=== PATIENT | male | born 1945 | race Caucasian/White ===

== ENCOUNTER 2017-04-30 12:19 | Inpatient (IN) | payer OTHER, MEDICARE ==
[~2017-04-30] VITALS: Ht 185.4 cm; Wt 81.5 kg
[2017-04-30] VITALS (7 sets, daily range): BP systolic 120–155; BP diastolic 58–73; PULSE 56–72; RESP 16–20; TEMP 97.8–98.7; O2SAT 95–99
[~2017-04-30 12:19] MED LIST: MMW SSP; PENI500T PO
[2017-04-30] MEDS ORDERED: SODIUM CHLORIDE 0.9% FLUSH 10 ML FLUSH IVF PRN (13:30)
--- NOTE | 2017-04-30 13:30 | PD ---
HPI Chief Complaint: Neuro Symptoms/ Deficits Time Seen by Provider: 13:13 Travel History International Travel<30 days: No Contact w/Intl Traveler<30days: No Traveled to known affect area: No History of Present Illness HPI This is a 71-year-old male who presents via EMS for evaluation of left vision loss. Symptoms started yesterday at noon. He reports that he was walking inside of his house from outside and initially thought that he was just adjusting to the light change however he had persistent vision loss in the left eye. Specifically he describes it as a tunnel vision in which she can essentially see fairly well however and all the peripheral regions of his left eye vision he sees nothing but tiwari. He saw an tax services specialist at [address] [facility] in [place], Dr. Berger, yesterday who told him that he likely had a cva and recommended routine follow-up and recommended coming to the emergency room if any symptoms worsen. He reports that today he developed some tingling sensation in the left parietal scalp region as well as the left leg and this prompted evaluation. He denies any pain. He denies any slurred speech, facial droop, weakness in the extremities, chest pain or shortness of breath, abdominal pain, recent illness. He denies any significant past medical history. He denies any tobacco use. He denies any drug use. He has no other complaints. His primary care physician is Dr. Winters. [facility] Past Medical History Blood Disorders: No Anxiety: Yes Depression: Yes Cancer: No Cardiovascular Problems: No Diminished Hearing: No Endocrine: No Genitourinary: No Immune Disorder: No Musculoskeletal: No Neurologic: No Psychiatric: Yes Reproductive: No Respiratory: No Past Surgical History Oral Surgery: Yes (had upper teeth removed.) Other Surgery: Yes (just dental.) Social History Alcohol Use: No (RECOVERING) Tobacco Use: No Substance Use: Yes (RECOVERING) Allergies-Medications (Allergen,Severity, Reaction): Coded Allergies: No Known Allergies (Verified , 04/30/17) Reported Meds & Prescriptions Reported Meds & Active Scripts Active No Active Prescriptions or Reported Medications Review of Systems Except as stated in HPI: all other systems reviewed are Neg Physical Exam Narrative GENERAL: Well-developed well-nourished male in no acute distress SKIN: Warm and dry. HEAD: Atraumatic. Normocephalic. EYES: Pupils equal and round reactive to light. No scleral icterus. No injection or drainage. ENT: No nasal bleeding or discharge. Mucous membranes pink and moist. NECK: Trachea midline. No JVD. CARDIOVASCULAR: Regular rate and rhythm. No murmur appreciated. RESPIRATORY: No accessory muscle use. Clear to auscultation. Breath sounds equal bilaterally. GASTROINTESTINAL: Abdomen soft, non-tender, nondistended. Hepatic and splenic margins not palpable. MUSCULOSKELETAL: No obvious deformities. No clubbing. No cyanosis. No edema. NEUROLOGICAL: Awake and alert. No obvious cranial nerve deficits. Motor grossly within normal limits. Normal speech. No extremity drift. Normal heel to koch. The patient has left eye peripheral visual loss in all 4 quadrants. Centrally he is able to visualize objects. PSYCHIATRIC: Appropriate mood and affect; insight and judgment normal. Data Data Last Documented VS Vital Signs Date Time Temp Pulse Resp B/P Pulse Ox O2 Delivery O2 Flow Rate FiO2 04/30/17 15:15 97.9 56 16 120/64 98 Room Air Orders Electrocardiogram (04/30/17 13:20) Prothrombin Time / Inr (Pt) (04/30/17 13:20) Act Partial Throm Time (Ptt) (04/30/17 13:20) Complete Blood Count With Diff (04/30/17 13:20) Comprehensive Metabolic Panel (04/30/17 13:20) Ecg Monitoring (04/30/17 13:20) Iv Access Insert/Monitor (04/30/17 13:20) Oximetry (04/30/17 13:20) Sodium Chloride 0.9% Flush (Ns Flush) (04/30/17 13:30) Mri Brain W/O Contrast (04/30/17 ) Labs Laboratory Tests Test 04/30/17 13:45 White Blood Count 5.9 TH/MM3 Red Blood Count 4.50 MIL/MM3 Hemoglobin 13.2 GM/DL Hematocrit 39.5 % Mean Corpuscular Volume 87.7 FL Mean Corpuscular Hemoglobin 29.2 PG Mean Corpuscular Hemoglobin 33.3 % Concent Red Cell Distribution Width 13.7 % Platelet Count 201 TH/MM3 Mean Platelet Volume 7.3 FL Neutrophils (%) (Auto) 63.6 % Lymphocytes (%) (Auto) 23.6 % Monocytes (%) (Auto) 9.6 % Eosinophils (%) (Auto) 2.3 % Basophils (%) (Auto) 0.9 % Neutrophils # (Auto) 3.8 TH/MM3 Lymphocytes # (Auto) 1.4 TH/MM3 Monocytes # (Auto) 0.6 TH/MM3 Eosinophils # (Auto) 0.1 TH/MM3 Basophils # (Auto) 0.1 TH/MM3 CBC Comment DIFF FINAL Differential Comment Prothrombin Time 10.5 SEC Prothromb Time International 1.0 RATIO Ratio Activated Partial 27.5 SEC Thromboplast Time Sodium Level 140 MEQ/L Potassium Level 4.3 MEQ/L Chloride Level 106 MEQ/L Carbon Dioxide Level 30.3 MEQ/L Anion Gap 4 MEQ/L Blood Urea Nitrogen 17 MG/DL Creatinine 1.03 MG/DL Estimat Glomerular Filtration 72 ML/MIN Rate Random Glucose 88 MG/DL Calcium Level 8.6 MG/DL Total Bilirubin 0.4 MG/DL Aspartate Amino Transf 22 U/L (AST/SGOT) Alanine Aminotransferase 24 U/L (ALT/SGPT) Alkaline Phosphatase 88 U/L Total Protein 6.2 GM/DL Albumin 3.4 GM/DL [facility] Medical Decision Making Medical Screen Exam Complete: Yes Emergency Medical Condition: Yes Medical Record Reviewed: Yes Differential Diagnosis CVA, central retinal artery occlusion, central retinal vein occlusion, retinal detachment, mass Narrative Course 71-year-old male presents with left eye peripheral vision loss which started yesterday. Today he developed some paresthesias in the left parietal scalp and left leg. He was seen by an tax services specialist yesterday and told that he likely had a stroke. Plan today is for basic lab work, EKG, and ECG monitoring, MRI of the brain. I discussed with my attending agrees with plan of care. The MRI of the brain is negative. At this point in time the plan would be to admit the patient for further neurologic/ophthalmologic workup. I discussed with Dr. Loya who is agreeable. Diagnosis Primary Impression: Acute visual loss Qualified Code: H53.132 - Acute visual loss, left Admitting Information Admitting Physician Requests: Admit Scripts No Active Prescriptions or Reported Meds Jaylan Montana Apr 30, 2017 13:30
[2017-04-30 14:05] LABS: AUTOMATED NEUTROPHIL # 3.8 TH/MM3 (1.8-7.7); BASOPHIL # 0.1 TH/MM3 (0-0.2); BASOPHIL % 0.9 % (0.0-2.0); EOSINOPHIL # 0.1 TH/MM3 (0-0.4); EOSINOPHIL % 2.3 % (0.0-4.0); HEMATOCRIT 39.5 % (39.0-51.0); HEMO FLAGS DIFF FINAL; LYMPH % 23.6 % (9.0-44.0); LYMPHOCYTE # 1.4 TH/MM3 (1.0-4.8); MEAN CELL VOLUME 87.7 FL (80.0-100.0); MEAN CORPUSCULAR HEMOGLOBIN 29.2 PG (27.0-34.0); MEAN CORPUSCULAR HGB CONC 33.3 % (32.0-36.0); MONO % 9.6 % (0.0-8.0); NEUT % 63.6 % (16.0-70.0); PLATELET COUNT 201 TH/MM3 (150-450); RED CELL DISTRIBUTION WIDTH 13.7 % (11.6-17.2); WHITE BLOOD COUNT 5.9 TH/MM3 (4.0-11.0)
[2017-04-30 14:15] LABS: APTT (PATIENT) 27.5 SEC (24.3-30.1); PROTHROMBIN TIME - PATIENT 10.5 SEC (9.8-11.6)
[2017-04-30 14:19] LABS: ANION GAP 4 MEQ/L (5-15); AST (GOT) 22 U/L (15-37); BICARBONATE 30.3 MEQ/L (21.0-32.0); BLOOD UREA NITROGEN 17 MG/DL (7-18); CHLORIDE 106 MEQ/L (98-107); GLOMERULAR FILTRATION RATE 72 ML/MIN (>89); POTASSIUM 4.3 MEQ/L (3.5-5.1); SODIUM (NA) 140 MEQ/L (136-145)
[2017-04-30 14:20] LABS: ALT (GPT) 24 U/L (12-78)
[2017-04-30 14:22] LABS: ALKALINE PHOSPHATASE 88 U/L (45-117); TOTAL BILIRUBIN ADULT 0.4 MG/DL (0.2-1.0)
--- NOTE | 2017-04-30 15:29 | RADRPT ---
EXAM DATE/TIME: 04/30/2017 14:54 [facility] COMPARISON: No previous studies available for comparison. INDICATIONS : Lost vision in left eye with left sided tingling. MEDICAL HISTORY : None. SURGICAL HISTORY : dental implants ENCOUNTER: Subsequent ACUITY: 2 day PAIN SCORE: 0/10 LOCATION: cranial TECHNIQUE: Multiplanar, multisequence MRI of the brain was performed without contrast. FINDINGS: There is no restricted diffusion evident to suggest an acute ischemic process. Moderate periventricular white matter changes are noted worse in the basalganglia on the left. There are no extra-axial fluid collections appreciated. There is no parenchymal hemorrhage In the posterior fossa there is the prominent cisterna magna evident. The orbits and paranasal sinuses are unremarkable. CONCLUSION: 1. Negative MRI of the brain for acute process. 2. Hyper acute subarachnoid hemorrhage can be missed by MRI. Silvestre Garcia MD FACR on April 30, 2017 at 15:25 Board Certified Radiologist. This report was verified electronically.
[2017-04-30] MEDS ORDERED: DEXTROSE 50% IN WATER 50 ML VIAL(D50) IV PUSH PRN (17:45)
[2017-04-30] MEDS ORDERED: GLUCAGON 1 MG/ML VIAL OTHER PRN (17:45)
[2017-04-30] MEDS ORDERED: SODIUM CHLORIDE 0.9% FLUSH 5 ML FLUSH IV FLUSH PRN (17:45)
--- NOTE | 2017-04-30 18:42 | RADRPT ---
EXAM DATE/TIME: 04/30/2017 18:02 [facility] COMPARISON: MRI BRAIN W/O CONTRAST, April 30, 2017, 14:54. INDICATIONS : Acute vision loss. RADIATION DOSE: 40.63 CTDIvol (mGy) MEDICAL HISTORY : None SURGICAL HISTORY : None. ENCOUNTER: Initial ACUITY: 1 day PAIN SCALE: 0/10 LOCATION: cranial TECHNIQUE: Multiple contiguous axial images were obtained of the head. Using automated exposure control and adjustment of the mA and/or kV according to patient size, radiation dose was kept as low as reasonably achievable to obtain optimal diagnostic quality images. DICOM format image data is av ailable electronically for review and comparison. FINDINGS: CEREBRUM: The ventricles are normal for age. No evidence of midline shift, mass lesion, hemorrha ge or acute infarction. No extra-axial fluid collections are seen. Minimal density in the right midd le cranial fossa extra-axial space likely dural thickening versus less likely hemorrhage. POSTERIOR FOSSA: The cerebellum and brainstem are intact. The 4th ventricle is midline. The cer ebellopontine angle is unremarkable. EXTRACRANIAL: The visualized portion of the orbits is intact. SKULL: The calvaria is intact. No evidence of skull fracture. CONCLUSION: Minimal density in the right middle cranial fossa extra-axial space likely dural thickening versus le ss likely hemorrhage. Otherwise unremarkable CT brain. Mejia Cantu MD on April 30, 2017 at 18:38 Board Certified Radiologist. This report was verified electronically.
--- NOTE | 2017-04-30 19:11 | RADRPT ---
EXAM DATE/TIME: 04/30/2017 18:24 [facility] COMPARISON: No previous studies available for comparison. INDICATIONS : Cerebrovascular accident. MEDICAL HISTORY : Depression. Anxiety. Cerebrovascular accident. SURGICAL HISTORY : Dental implants. ENCOUNTER: Initial ACUITY: 2 days PAIN SCORE: 3/10 LOCATION: Bilateral neck PEAK SYSTOLIC VELOCITIES (cm/sec): ICA/CCA RATIO: Right: 0.9 Left: 1.0 ICA: Right: 81.3 Left: 88.4 CCA: Right: 88.4 Left: 88.3 ECA: Right: 98.3 Left: 111.6 VERTEBRAL: Right: 53.2 antegrade Left: 49.0 antegrade Elevated flow velocities and ICA/CCA ratios have been found to correlate with increased degrees of vessel stenosis, calculated as percentage of diameter relative to a normal segment of distal ICA/CCA FINDINGS: RIGHT CAROTID: No significant stenosis is visualized. Mild plaque. The waveforms are within normal limits. LEFT CAROTID: No significant stenosis is visualized. Mild plaque. The waveforms are within normal limits. VERTEBRAL ARTERIES: Antegrade flow is seen in both vertebral arteries. MISCELLANEOUS: None. CONCLUSION: No hemodynamically significant stenosis in either carotid artery. Mejia Cantu MD on April 30, 2017 at 19:03 Board Certified Radiologist. This report was verified electronically.
[2017-04-30] MEDS ORDERED: ASPIRIN 325 MG TAB PO ONE (20:00)
--- NOTE | 2017-04-30 20:16 | RADRPT ---
EXAM DATE/TIME: 04/30/2017 19:43 [facility] COMPARISON: No previous studies available for comparison. INDICATIONS : CVA. Lost vision in left eye with left sided tingling. MEDICAL HISTORY : None. SURGICAL HISTORY : None. ENCOUNTER: Subsequent ACUITY: 2 day PAIN SCORE: 0/10 LOCATION: head. Known MRI Precautions: Sedation utilized? No Anesthesia present? No MRI reaction? No If YES, explain: Please note a normal MRA of the brain does not entirely exclude the possibility of a small aneurysm, nor the possibility of distal intracranial vessel disease. TECHNIQUE: 3D time of flight MRA was performed. Source images, multiplanar STS MIP, and 3D volume MIP reconstru ctions were reviewed. FINDINGS: There is excellent visualization of the major intracranial arteries out to the second-order branch ve ssels. There is no evidence for aneurysm, vessel truncation or stenosis, and no evidence for vascula r malformation. Hypoplastic anterior and posterior to meeting arteries. Questionable narrowing versus thrombus of the distal left for artery which could be artifact. The anterior, posterior and middle c erebral arteries are patent. CONCLUSION: 1. Questionable narrowing versus thrombus of the distal left vertebral artery versus artifact. CTA of the carotid arteries is recommended for further characterization. 2. Otherwise unremarkable MRI of the brain. Mejia Cantu MD on April 30, 2017 at 20:09 Board Certified Radiologist. This report was verified electronically.
--- NOTE | 2017-04-30 20:48 | HHI.HP ---
[facility] Mike Winters MD Admission Diagnosis acute vision loss Diagnoses: Chief Complaint: Loss of vision in the left eye Travel History International Travel<30 Days: No Contact w/Intl Traveler <30 Da: No Traveled to Known Affected Are: No History of Present Illness This is a 71-year-old male without significant past medical history who presents complaining of one-day history of sudden onset of loss of vision on the left thigh. The patient states that he was at home on his usual state of health when suddenly he suddenly lost the entire vision on the left eye. The patient states that he had a little bit of headache but denies any dizziness, double vision, blurred vision. He states that he called an manual plate filler that he had already scheduled appointment with and asked her to see him right away. As per patient report he had a dilated eye exam and he was told that he didn't have anything anatomical in the left thigh and that probably had a stroke. As per the patient's report she recommended the patient to make a follow-up upon with him and to come to the hospital should it get worst. The patient states that the complete loss of patient progress to a tunnel vision, however last night he started feeling some paresthesias over the left side of the scalp and also some weakness with some perceived left lower extremity weakness. The patient denies any numbness. The patient otherwise denies any fevers chills, cough, chest pain, diarrhea, nausea or vomiting. At the moment of interview the patient still complains of tunnel vision on the left eye, tingling over the left scalp and over the left lower extremity. Review of Systems As per history of present illness, other systems reviewed by me and negative Past Family Social History Past Medical History Denies alcohol abuse Past Surgical History Dental implants Reported Medications Reported Meds & Active Scripts Active No Active Prescriptions or Reported Medications Allergies: Coded Allergies: No Known Allergies (Verified , 04/30/17) Active Ordered Medications Current Medications Medications (Trade) Dose Ordered Sig/Ezequiel Route Start Time Stop Time Status Last Admin (NS Flush) 2 ml BID IV FLUSH 04/30/17 21:00 (NS Flush) 2 ml UNSCH PRN IV FLUSH 04/30/17 17:45 (Aspirin) 325 mg DAILY PO 05/01/17 09:00 (NovoLOG SUPPLEMENTAL SCALE) 1 ACHS SQ 04/30/17 21:00 (D50w (Vial) Inj) 50 ml UNSCH PRN IV PUSH 04/30/17 17:45 (Glucagon Inj) 1 mg UNSCH PRN OTHER 04/30/17 17:45 Family History Patient's father of a heart attack at age 65. Patient's mother had breast cancer. Social History The patient is a former smoker but he quit in 1988. The patient has history of alcohol abuse but he has been sober for 4 years. The patient denies any illicit drug use. The patient is and has one daughter with his previous marriage. The patient states that his designated power of laborer operator is her ex-. Physical Exam Vital Signs Vital Signs Date Time Temp Pulse Resp B/P Pulse Ox O2 Delivery O2 Flow Rate FiO2 04/30/17 20:12 64 18 155/73 97 Room Air 04/30/17 18:00 97.8 59 16 121/73 99 Room Air 04/30/17 15:15 97.9 56 16 120/64 98 Room Air 04/30/17 13:35 16 97 04/30/17 13:12 68 15 97 Room Air 04/30/17 12:22 98.7 72 20 155/70 97 Room Air Physical Exam GENERAL: This is a well-nourished, well-developed patient, in no apparent distress. SKIN: No rashes, ecchymoses or lesions. Cool and dry. HEAD: Atraumatic. Normocephalic. No temporal or scalp tenderness. EYES: Pupils equal round and reactive. Extraocular motions intact. No scleral icterus. No injection or drainage. ENT: Nose without bleeding, purulent drainage or septal hematoma. Throat without erythema, tonsillar hypertrophy or exudate. Uvula midline. Airway patent. NECK: Trachea midline. No JVD or lymphadenopathy. Supple, nontender, no meningeal signs. CARDIOVASCULAR: Regular rate and rhythm without murmurs, gallops, or rubs. RESPIRATORY: Clear to auscultation. Breath sounds equal bilaterally. No wheezes , rales, or rhonchi. GASTROINTESTINAL: Abdomen soft, non-tender, nondistended. No hepato-splenomegaly , or palpable masses. No guarding. MUSCULOSKELETAL: Extremities without clubbing, cyanosis, or edema. No joint tenderness, effusion, or edema noted. No calf tenderness. Negative Homans sign bilaterally. NEUROLOGICAL: Awake and alert. Cranial nerves II through XII intact. Motor and sensory grossly within normal limits. Five out of 5 muscle strength in all muscle groups except in the left lower extremity where it is 4 over 5. Normal speech. Upon confrontation exam there is decreased peripheral vision on the left eye, where the patient only has central vision. Laboratory Laboratory Tests Test 04/30/17 13:45 White Blood Count 5.9 Red Blood Count 4.50 Hemoglobin 13.2 Hematocrit 39.5 Mean Corpuscular Volume 87.7 Mean Corpuscular Hemoglobin 29.2 Mean Corpuscular Hemoglobin 33.3 Concent Red Cell Distribution Width 13.7 Platelet Count 201 Mean Platelet Volume 7.3 Neutrophils (%) (Auto) 63.6 Lymphocytes (%) (Auto) 23.6 Monocytes (%) (Auto) 9.6 Eosinophils (%) (Auto) 2.3 Basophils (%) (Auto) 0.9 Neutrophils # (Auto) 3.8 Lymphocytes # (Auto) 1.4 Monocytes # (Auto) 0.6 Eosinophils # (Auto) 0.1 Basophils # (Auto) 0.1 CBC Comment DIFF FINAL Differential Comment Prothrombin Time 10.5 Prothromb Time International 1.0 Ratio Activated Partial 27.5 Thromboplast Time Sodium Level 140 Potassium Level 4.3 Chloride Level 106 Carbon Dioxide Level 30.3 Anion Gap 4 Blood Urea Nitrogen 17 Creatinine 1.03 Estimat Glomerular Filtration 72 Rate Random Glucose 88 Calcium Level 8.6 Total Bilirubin 0.4 Aspartate Amino Transf 22 (AST/SGOT) Alanine Aminotransferase 24 (ALT/SGPT) Alkaline Phosphatase 88 Total Protein 6.2 Albumin 3.4 Result Diagram: 04/30/17 1345 04/30/17 1345 Imaging Last Impressions Head Magnetic Resonance Angiography 04/30/17 0000 Signed Impressions: Service Date/Time: Sunday, April 30, 2017 19:43 - CONCLUSION: 1. Questionable narrowing versus thrombus of the distal left vertebral artery versus artifact. CTA of the carotid arteries is recommended for further characterization. 2. Otherwise unremarkable MRI of the brain. Mejia Cantu MD Head CT 04/30/17 0000 Signed Impressions: Service Date/Time: Sunday, April 30, 2017 18:02 - CONCLUSION: Minimal density in the right middle cranial fossa extra-axial space likely dural thickening versus less likely hemorrhage. Otherwise unremarkable CT brain. Mejia Cantu MD Carotid Artery Ultrasound 04/30/17 0000 Signed Impressions: Service Date/Time: Sunday, April 30, 2017 18:24 - CONCLUSION: No hemodynamically significant stenosis in either carotid artery. Mejia Cantu MD Brain MRI 04/30/17 0000 Signed Impressions: Service Date/Time: Sunday, April 30, 2017 14:54 - CONCLUSION: 1. Negative MRI of the brain for acute process. 2. Hyper acute subarachnoid hemorrhage can be missed by MRI. Silvestre Garcia MD FACR Reviewed by me Assessment and Plan Problem List: (1) Acute visual loss ICD Code: H53.139 Status: Acute Assessment and Plan Admit the patient to the medical floor MRI brain obtained emergency department and it showed a negative MRI of the brain for acute process. CT of the head ordered by me showed minimal density in the right middle cranial fossa extra-axial space likely dural thickening versus less likely hemorrhage. Head MRA shows a questionable narrowing versus thrombus at the distal left vertebral artery versus artifact. I will order a CT of the carotids Will give aspirin 325 mg by mouth 1 and daily Differential diagnoses include TIA, CVA, carotid retinal artery occlusion Consult neurology Check carotid Dopplers Check 2-D echocardiogram Monitor on telemetry Check lipid profile and hemoglobin A1c Will place on Lovenox subcutaneously for DVT prophylaxis. Code Status Full code Discussed Condition With ED physician, patient Physician Certification 2 Midnight Certification Type: Admission for Inpatient Services Order for Inpatient Services The services are ordered in accordance with Medicare regulations or non- Medicare payer requirements, as applicable. In the case of services not specified as inpatient-only, they are appropriately provided as inpatient services in accordance with the 2-midnight benchmark. Estimated LOS (days): 2 days is the estimated time the patient will need to remain in the hospital, assuming treatment plan goals are met and no additional complications. Post-Hospital Plan: Not yet determined Problem Qualifiers (1) Acute visual loss: Qualified Code: H53.132 - Acute visual loss, left Manuel Garay MD Apr 30, 2017 20:48
[2017-04-30] MEDS: INSULIN ASPART SUPPLEMENTAL SCALE SQ SCH (21:00)
[2017-04-30] MEDS ORDERED: IOHEXOL 350 MG/ML 10 ML VIAL (for RAD DIAG) IV ONE (21:41)
--- NOTE | 2017-04-30 22:07 | RADRPT ---
EXAM DATE/TIME: 04/30/2017 21:18 [facility] COMPARISON: No previous studies available for comparison. INDICATIONS : Loss of vision in left eye. Abnormal MRA of brain. IV CONTRAST: 80 cc Omnipaque 350 (iohexol) IV RADIATION DOSE: 28.58 CTDIvol (mGy) MEDICAL HISTORY : None SURGICAL HISTORY : None. ENCOUNTER: Initial ACUITY: 1 day PAIN SCALE: 0/10 LOCATION: neck Elevated flow velocities and ICA/CCA ratios have been found to correlate with increased degrees of vessel stenosis, calculated as percentage of diameter relative to a normal segment of distal ICA/CCA. TECHNIQUE: Volumetric scanning was performed using a multirow detector CT scanner. The data was post processed with a variety of visualization algorithms including full-volume maximum intensity projection, multip lanar sliding thin-slab reformation, curved-planar reformation, and surface-rendering techniques. Us ing automated exposure control and adjustment of the mA and/or kV according to patient size, radiatio n dose was kept as low as reasonably achievable to obtain optimal diagnostic quality images. DICOM f ormat image data is available electronically for review and comparison. FINDINGS: AORTIC ARCH: There is a three-vessel origin of the great vessels from the aorta. No evidence of ostial narrowing. RIGHT CAROTID: The common carotid artery is intact. The carotid bulb has a normal configuration without ulceration o r narrowing. The internal carotid artery lumen is smooth without stenosis. The external carotid lindsey ry is intact. LEFT CAROTID: The common carotid artery is intact. There is calcified and soft tissue plaque at the left bulb but n o significant stenosis. There is 50% narrowing of the origin of the external carotid artery. VERTEBRALS: The vertebral arteries have a symmetric diameter. No stenotic lesions are seen. CONCLUSION: 1. Atherosclerotic changes of the proximal left internal carotid artery but no significant stenosis. 2. Normal right carotid artery. Mejia Cantu MD on April 30, 2017 at 21:57 Board Certified Radiologist. This report was verified electronically.
[2017-04-30 22:37] LABS: HEMOGLOBIN A1a 1.3 %; HEMOGLOBIN A1b 1.7 %; HEMOGLOBIN Ao 85.2 %; HEMOGLOBIN LA1C 1.9 %; HEMOGLOBIN P3 3.7 %
[2017-04-30] MEDS: ENOXAPARIN SODIUM 40 MG/0.4 ML SYRINGE SQ SCH (23:00)
[2017-05-01] VITALS (7 sets, daily range): BP systolic 102–144; BP diastolic 57–73; PULSE 57–86; RESP 16–18; TEMP 97.3–98.5; O2SAT 95–97
[2017-05-01] MEDS: SODIUM CHLORIDE 0.9% FLUSH 5 ML FLUSH IV FLUSH SCH ×3 (00:16→22:45)
[2017-05-01] MEDS: INSULIN ASPART SUPPLEMENTAL SCALE SQ SCH ×4 (07:00→21:00)
[2017-05-01 07:45] LABS: HDL CHOLESTEROL 43.1 MG/DL (40.0-60.0)
[2017-05-01] MEDS: ASPIRIN 325 MG TAB PO SCH (09:28)
[2017-05-01] MEDS ORDERED: GADODIAMIDE PF 287 MG/ML 5 ML VIAL (for RAD MRI) IV ONE (11:56)
--- NOTE | 2017-05-01 13:00 | EKG ---
Date Performed: 04/30/2017 Time Performed: 13:39:02 PTAGE: 71 years EKG: SINUS BRADYCARDIA MODERATE INTRAVENTRICULAR CONDUCTION DELAY BORDERLINE ECG PREVIOUS TRACING : 07/23/2007 08.40 DOCTOR: Socrates Arriaga Interpretating Date/Time 05/01/2017 12:54:26
--- NOTE | 2017-05-01 13:10 | ECHRPT ---
Indication: Transient cerebral ischemic attack, unspecified CONCLUSIONS Trace tricuspid valve regurgitation. Trace mitral valve regurgitation. Normal left ventricular sizethere is assymetric septal hypertrophy. . The left ventricular systolic function is normal with an estimated ejection fraction in the range of 60-65%. Left ventricular diastolic function parameters are normal. BP: 125 / 66 HR: 60 Rhythm: MEASUREMENTS (Male / Female) Normal Values Technical Quality:Good 2D ECHO LV Diastolic Diameter PLAX 4.5 cm 4.2 - 5.9 / 3.9 - 5.3 cm LV Systolic Diameter PLAX 3.2 cm IVS Diastolic Thickness 1.4 cm 0.6 - 1.0 / 0.6 - 0.9 cm LVPW Diastolic Thickness 1.0 cm 0.6 - 1.0 / 0.6 - 0.9 cm LV Relative Wall Thickness 0.5 RV Internal Dim ED PLAX 2.9 cm M-MODE Aortic Root Diameter MM 3.3 cm LA Systolic Diameter MM 4.2 cm LA Ao Ratio MM 1.3 AV Cusp Separation MM 2.2 cm DOPPLER Mitral E Point Velocity 86.9 cm/s Mitral A Point Velocity 90.9 cm/s Mitral E to A Ratio 1.0 TR Peak Velocity 243.0 cm/s TR Peak Gradient 23.6 mmHg FINDINGS LEFT VENTRICLE Normal left ventricular sizethere is assymetric septal hypertrophy. . The left ventricular systolic function is normal with an estimated ejection fraction in the range of 60-65%. Left ventricular diastolic function parameters are normal. RIGHT VENTRICLE Normal right ventricular size and systolic function. LEFT ATRIUM The left atrial size is normal RIGHT ATRIUM The right atrial size is normal. ATRIAL SEPTUM Normal atrial septal thickness without atrial level shunting by limited color doppler interrogation. AORTA The aortic root and proximal ascending aorta are normal in size on limited imaging. MITRAL VALVE Mild mitral annular calcification. No mitral valve stenosis. Trace mitral valve regurgitation. AORTIC VALVE Trileaflet aortic valve. No aortic valve stenosis or regurgitation. TRICUSPID VALVE Structurally normal tricuspid valve. No tricuspid valve stenosis there is mild tricuspid valve regur gitation. . PULMONARY VALVE The pulmonary valve is not well visualized. VESSELS The inferior vena cava is normal in size. PERICARDIUM No pericardial effusion. Ramses Foss MD (Electronically Signed) Final Date:01 May 2017 13:08
--- NOTE | 2017-05-01 13:31 | MB ---
cc: DYLAN SOUSA MD DATE OF CONSULTATION 05/01/2017 REASON FOR CONSULTATION Acute loss of vision. HISTORY OF PRESENT ILLNESS Mr. Cruz is a 71-year-old male with no significant past medical history who presented to the [facility] complaining of a two-day history of sudden onset of painless loss of vision over his left eye, the patient stated that he was in and out from the sun to inside and he thought there was some episodes of accommodation of vision until he found out that he is not seeing from his left eye, he denies pain, double vision, blurred vision. He complained of mild numbness of the left temporal area of his head, mild numbness on his left upper extremity. Denies dizziness, speech difficulty, muscle twitches convulsions, weakness of an extremity. Denies a history of similar episode in the past. The patient denies change in lifestyle daily habits, alcohol, smoking or drug use. He was scheduled to see an care services manager and they told him that the dilated eye exam was normal and he needs to follow up for a possible stroke. The patient describes a tunnel vision-like over the left eye. The patient endorses mild headache nonspecific over the left side of the head, but no actual constant significant headache. REVIEW OF SYSTEMS A 12-point review of systems is negative except for what is stated in the HPI. PAST MEDICAL HISTORY Unremarkable PAST SURGICAL HISTORY Dental implants MEDICATIONS Not applicable. ALLERGIES No known allergies. FAMILY HISTORY Father of heart attack at 65. Mother had breast cancer. SOCIAL HISTORY Former smoker, quit 1988. History of alcohol abuse. He has been sober for four years. Denies illicit drug abuse. PHYSICAL EXAMINATION GENERAL: Awake, alert, oriented, pleasant, a good historian not in acute distress HEENT: Atraumatic, normocephalic. Diminished vision over the left eye, intact hearing. NECK: Supple. Trachea in the midline. No carotid bruit. CARDIOVASCULAR: Regular rate and rhythm. RESPIRATORY: Clear to auscultation. No wheezes. GASTROINTESTINAL: Soft abdomen, nontender. MUSCULOSKELETAL: Moves extremities without clubbing, cyanosis or edema. NEUROLOGIC: Awake, alert, oriented to time, person and place. No dysarthria. No dysphagia. Left visual field revealed what looks like tunnel vision with possible lower quadrant loss of vision with blurring in the upper quadrant. Left pupil is questionable with afferent pupillary defect. No temporal tenderness.Intact facial sensation. No ptosis. No nystagmus. Intact external ocular motility. No facial asymmetry. Upper and lower extremity grade 5/5. No abnormal movement. Normal tone. Cerebellar functions are intact. Sensation to light touch and temperature is intact. Reflexes 2+ bilateral and symmetrical. Plantars right downgoing, left questionable upgoing/equivocal. PSYCHIATRIC: Good mood and affect. No hallucinations. LABORATORY DATA White blood cells 5.9, hemoglobin 13.2, platelet 201. Sodium 140, potassium 4.3 , anion gap 4, BUN 17, creatinine 1.03, total protein 6.2, triglyceride 121, cholesterol 184, LDL cholesterol is elevated 117, HDL 43, INR is 1. DIAGNOSTICS IMAGING - Head CT scan was reported with minimal density in the right middle cranial fossae extra-axial space likely dural thickening versus less likely hemorrhage. - Brain MRI without contrast was negative for an acute process, hyperacute subarachnoid hemorrhage can be missed by MRI. Carotid ultrasound revealed no hemodynamically significant stenosis in either carotid artery. - Head MRA without contrast revealed questionable narrowing versus thrombus of the distal left vertebral artery versus artifact. CTA of the carotid arteries recommended otherwise unremarkable MRI of the brain. - CTA with IV contrast revealed atherosclerotic changes in the proximal left ICA , but no significant stenosis, normal right carotid artery. DIAGNOSTIC IMPRESSION 1. Acute mononuclear visual loss. 2. Possible etiology is acute embolic stroke, acute ischemic optic neuropathy. 3. Central retinal artery occlusion PLAN 1. Neuro checks q4 hourly 2. Brain MRI with and without contrast. 3. Consult ophthalmology. Recommendations are appreciated. 4. Obtain sed rate, WILLIAM and C-reactive protein. 5. Start aspirin 81 mg daily. 6. DVT prophylaxis. Thank you for the opportunity to participate in the care of your patient. MD BRUNO Castillo/MANOLO /12:53 PM /1:06 PM RICHARD
--- NOTE | 2017-05-01 17:57 | PD.CONS ---
History of Present Illness Service Ophthalmology Consult Requested By Reason for Consult loss of vision OS Primary Care Physician Mike Winters MD Diagnoses: History of Present Illness 71 yo otherwise healthy WM presenting to ED with 2 day history of loss of vision in left eye. States all of a sudden on Friday he realized he was only seeing through a small tunnel on the temporal side of his left eye. He went to see looping inspector at [facility] who did not see anything abnormal on the eye exam. No trauma, no pain, no significant ocular history except for cataracts. MRI brain, carotid US normal. Echo done today - results pending. Neuro ordered MRI brain with contrast. ROS for GCA negative other than unintentional weight loss of 10 lbs over the last 2 months. Past Family Social History Allergies: Coded Allergies: No Known Allergies (Verified , 04/30/17) Physical Exam Vital Signs Vital Signs Date Time Temp Pulse Resp B/P Pulse Ox O2 Delivery O2 Flow Rate FiO2 05/01/17 16:00 97.5 58 16 127/59 97 05/01/17 15:46 98.4 86 18 102/70 97 05/01/17 12:00 98.5 63 16 130/63 96 05/01/17 08:00 97.9 63 16 126/64 96 05/01/17 08:00 58 05/01/17 04:56 97.3 60 18 125/66 96 04/30/17 22:00 97.8 63 16 129/58 95 04/30/17 21:30 64 16 137/66 96 Room Air 04/30/17 20:12 64 18 155/73 97 Room Air 04/30/17 18:00 97.8 59 16 121/73 99 Room Air Physical Exam Va cc at near OD 20/30, OS 20/30 EOM full OU, no diplopia CVF full OD, small residual island of vision temporally Pupils 2-1, APD OS IOP normal to palpation OU Anterior exam OD - normal eyelid, C/S W&Q, K clear, AC deep, pupil round, cataract OS - normal eyelid, C/S W&Q, K clear, AC deep, pupil round, cataract Dilated exam OD - ON s/p/f, ves normal, vit clear, retina flat OS - ON s/p/f, whitening of retina with sparing of cilioretinal artery Laboratory Laboratory Tests Test 05/01/17 06:34 Triglycerides Level 121 Cholesterol Level 184 LDL Cholesterol 117 HDL Cholesterol 43.1 Cholesterol/HDL Ratio 4.26 Result Diagram: 04/30/17 1345 04/30/17 1345 Assessment and Plan Problem List: (1) Central retinal artery occlusion of left eye Status: Acute Plan: CRAO with sparing of cilioretinal artery. No treatment has been shown to be effective. Studies show vision loss is irreversible after 90 min of blocked blood flow. Follow up on ordered ESR/CRP to rule out GCA. Follow up on Echo results. No other underlying vascular risk factors. Start ASA 81mg. Verena Telles MD May 01, 2017 17:57
--- NOTE | 2017-05-01 18:06 | RADRPT ---
EXAM DATE/TIME: 05/01/2017 11:41 [facility] COMPARISON: No previous studies available for comparison. INDICATIONS : Vision changes. Acute monocular vision loss. CONTRAST: 15 cc Omniscan (gadodiamide) IV MEDICAL HISTORY : None. SURGICAL HISTORY : Dental implant. ENCOUNTER: Initial ACUITY: 2 day PAIN SCORE: 0/10 LOCATION: Head. TECHNIQUE: Multiplanar, multisequence MRI of the brain was performed both prior to and following the administrat ion of paramagnetic contrast. FINDINGS: There about lacunar infarct in the deep white matter left frontal region. No acute infarct is seen on the current examination. The optic globes are symmetric on MRI. No abnormal enhancing brain lesions are seen. No abnormal extra-axial fluid collections identified. CONCLUSION: 1. No acute findings. Remote linear infarct deep white matter on the left side. Minimal white matter ischemic changes. No recent infarction, mass effect or shift. No abnormal enhancing brain lesions. Papa Schmid MD on May 01, 2017 at 17:57 Board Certified Radiologist. This report was verified electronically.
--- NOTE | 2017-05-01 18:43 | HHI.PR ---
Subjective Remarks still has tunneled vision int he left eye had dilated eye exam today still c/o paresthesias on left face and leg. vital signs seems to be stable Objective Vitals Vital Signs Date Time Temp Pulse Resp B/P Pulse Ox O2 Delivery O2 Flow Rate FiO2 05/01/17 16:00 97.5 58 16 127/59 97 05/01/17 15:46 98.4 86 18 102/70 97 05/01/17 12:00 98.5 63 16 130/63 96 05/01/17 08:00 97.9 63 16 126/64 96 05/01/17 08:00 58 05/01/17 04:56 97.3 60 18 125/66 96 04/30/17 22:00 97.8 63 16 129/58 95 04/30/17 21:30 64 16 137/66 96 Room Air 04/30/17 20:12 64 18 155/73 97 Room Air I/O 04/30/17 04/30/17 04/30/17 05/01/17 05/01/17 05/01/17 07:00 15:00 23:00 07:00 15:00 23:00 Intake Total 236 ml 480 ml 720 ml Balance 236 ml 480 ml 720 ml Intake Oral 236 ml 480 ml 720 ml # Voids 1 3 3 # Bowel Movements 0 0 Result Diagram: 04/30/17 1345 04/30/17 1345 Imaging Last Impressions Brain MRI 05/01/17 0000 Signed Impressions: Service Date/Time: April 11:41 - CONCLUSION: 1. No acute findings. Remote linear infarct deep white matter on the left side. Minimal white matter ischemic changes. No recent infarction, mass effect or shift. No abnormal enhancing brain lesions. Papa Schmid MD Neck CTA 04/30/17 0000 Signed Impressions: Service Date/Time: Sunday, April 30, 2017 21:18 - CONCLUSION: 1. Atherosclerotic changes of the proximal left internal carotid artery but no significant stenosis. 2. Normal right carotid artery. Mejia Cantu MD Head Magnetic Resonance Angiography 04/30/17 0000 Signed Impressions: Service Date/Time: Sunday, April 30, 2017 19:43 - CONCLUSION: 1. Questionable narrowing versus thrombus of the distal left vertebral artery versus artifact. CTA of the carotid arteries is recommended for further characterization. 2. Otherwise unremarkable MRI of the brain. Mejia Cantu MD Head CT 04/30/17 0000 Signed Impressions: Service Date/Time: Sunday, April 30, 2017 18:02 - CONCLUSION: Minimal density in the right middle cranial fossa extra-axial space likely dural thickening versus less likely hemorrhage. Otherwise unremarkable CT brain. Mejia Cantu MD Carotid Artery Ultrasound 04/30/17 0000 Signed Impressions: Service Date/Time: Sunday, April 30, 2017 18:24 - CONCLUSION: No hemodynamically significant stenosis in either carotid artery. Mejia Cantu MD Objective Remarks AOx3 Both pupils are dilated. EOM full OU, no diplopia CVF full OD, small residual island of vision temporally S1S2 RRR, no MRG Clear lungs BL no edema in extremities Procedures none Medications and IVs Current Medications Medications (Trade) Dose Ordered Sig/Ezequiel Route Start Time Stop Time Status Last Admin (NS Flush) 2 ml BID IV FLUSH 04/30/17 21:00 05/01/17 09:00 (NS Flush) 2 ml UNSCH PRN IV FLUSH 04/30/17 17:45 (Aspirin) 325 mg DAILY PO 05/01/17 09:00 05/01/17 09:28 (NovoLOG SUPPLEMENTAL SCALE) 1 ACHS SQ 04/30/17 21:00 (D50w (Vial) Inj) 50 ml UNSCH PRN IV PUSH 04/30/17 17:45 (Glucagon Inj) 1 mg UNSCH PRN OTHER 04/30/17 17:45 (Lovenox Inj) 40 mg Q24H SQ 04/30/17 21:00 04/30/17 23:00 A/P Problem List: (1) Acute visual loss ICD Code: H53.139 Status: Acute (2) Central retinal artery occlusion of left eye ICD Code: H34.12 Status: Acute (3) Hyperlipidemia LDL goal <100 ICD Code: E78.5 Status: Acute Assessment and Plan This is a 71-year-old male with past medical history significant for alcohol abuse but no other significant medical problem who presents with sudden onset of acute vision loss on the left eye. CT of the head showed minimal density in the right middle cranial foci of extra- axial space which is likely a dural thickening versus less likely hemorrhage. MRI of the brain with and without contrast negative for an acute process. Head MRA showed questionable narrowing versus thrombosis of the distal left vertebral artery versus artifact. CT of the head shows atherosclerotic changes of the proximal left of the proximal left internal carotid artery but no significant stenosis. Carotis artery us did not show any hemodynamically significant stenosis in either carotid artery. Neurology and ophthalmology has been consulted. Patient had whitening of the retina with sparing of the superior retinal artery concordant with CRA0. For which not treatment has been shown to be effective. Follow-up ESR CRP to rule out giant cell arteritis which have been ordered but not done until now. 2-D echocardiogram shows an symmetric septal hypertrophy and an ejection fraction the range of 55-60%. Consult cardiology for evaluation for Holter monitor placement. No arrhythmias on telemetry. Continue aspirin 325 mg by mouth daily. I will consult hematology for evaluation for hypercoagulable workup. Lipid profile was obtained and shows an a total cholesterol 184 with an LDL of 117, HDL cholesterol of 43.1. I will start the patient on a statin. The case was discussed with Dr. Maloney. Discharge Planning Discharge pending hematology and cardiology evaluation. ESR and CRP, neurology clearance. Problem Qualifiers (1) Acute visual loss: Qualified Code: H53.132 - Acute visual loss, left Manuel Garay MD May 01, 2017 18:43
[2017-05-01] MEDS: ATORVASTATIN 20 MG TAB PO SCH (19:00)
[2017-05-01] MEDS: ENOXAPARIN SODIUM 40 MG/0.4 ML SYRINGE SQ SCH (22:41)
[2017-05-02 05:00] VITALS: BP 142/71; PULSE 59; RESP 18; TEMP 98; O2SAT 97
[2017-05-02 08:00] VITALS: BP 123/68; PULSE 58; PULSE 64; RESP 17; TEMP 97.6; O2SAT 96
[2017-05-02] MEDS: SODIUM CHLORIDE 0.9% FLUSH 5 ML FLUSH IV FLUSH SCH ×2 (09:00→22:42)
[2017-05-02] MEDS: ATORVASTATIN 20 MG TAB PO SCH (09:41)
[2017-05-02] MEDS: ASPIRIN 325 MG TAB PO SCH (09:41)
[2017-05-02] MEDS: INSULIN ASPART SUPPLEMENTAL SCALE SQ SCH ×3 (11:30→21:00)
--- NOTE | 2017-05-02 11:39 | MB ---
cc: DELIA CERVANTES M.D., ZAFAR MD HEMATOLOGY/ONCOLOGY CONSULTATION NOTE DATE OF CONSULTATION 05/02/2017 DATE OF 1945 CONSULTATION REQUEST By the Hospitalist service. REASON FOR CONSULTATION Central retinal artery occlusion on the left side with resultant visual field loss in the left eye. Hematology has been consulted to see this patient and work him up further for possible underlying prothrombotic state. CHIEF COMPLAINT Mr. Cruz reports being in his usual good state of health up until friday (04/29/2017). He reports noticing a change in his vision in the left thigh all of a sudden. He examined himself and noticed a loss of vision involving the middle portion of his left eye, in fact the only area he could see was off to the temporal area. He reports no pain, reports no other visual losses, denies any loss of motor strength or loss of coordination. He reported these symptoms to his desk sergeant who recommended the patient undergo imaging studies and eventually the patient was recommended evaluation at the [facility] emergency department. The patient underwent imaging studies on 04/30/2017. The imaging studies included CT scan of the head, MRI of the head, MRA of the head, ultrasound Doppler studies of the carotid arteries. He has thus far been evaluated by neurology as well as ophthalmology. The patient has been initiated on aspirin after being assessed to have a central retinal artery occlusion (CRAO). Thus far, the imaging studies have been relatively unremarkable, the MRA of the head indicates questionable narrowing versus thrombosis in the left distal left vertebral artery versus infarct. CTA of the carotid arteries is recommended for further workup and characterization. CTA of the neck done on 04/30/2017 indicates atherosclerotic changes in the proximal left internal carotid artery, but no significant stenosis, normal right carotid artery. PAST MEDICAL HISTORY 1. The patient reports being a smoker, he quit smoking in 1989 and prior to that smoked a pack a day for about 30 years. 2. He also reports a history of heavy alcohol consumption but has not drank in over four years. PAST SURGICAL HISTORY Dental implants. No other surgeries. FAMILY HISTORY Father of a myocardial infarction at the age of 65, paternal grandmother had an [place] at 65. Paternal grandfather had a stroke in his 70s. Her daughter had a myocardial infarction at the age of 45, she is a smoker and is a diabetic. Mother is , cause of not known. ALLERGIES NO KNOWN DRUG ALLERGIES. SOCIAL HISTORY 1. Former smoker having smoked pack a day for about 30 years. She quit in 1989. 2. Also reports a history of heavy alcohol consumption in the past but he quit four years ago. 3. He has one child who is an adult. 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 He is partnered and has a fiance. HEALTH CARE MAINTENANCE Colonoscopy earlier this year which was noted to be normal. PSA was checked earlier this year. CURRENT INPATIENT MEDICATIONS 1. Aspirin 225 mg once a day 2. Atorvastatin 20 mcg once a day 3. Lovenox 40 mg subcu daily 4. Insulin sliding scale per protocol REVIEW OF SYSTEMS A 13-point review of systems is obtained. Mr. Cruz reports having had an unintended 10-pound weight loss for the past two months or so. He tells me his appetite has been unusually poor. He denies fevers, chills or night sweats. HEENT: Denies headaches, reports visual deficits in his left eye. Denies difficulty swallowing or soreness of throat. RESPIRATORY: Denies difficulty breathing, cough, hemoptysis or pleuritic chest pain. CARDIOVASCULAR: Denies angina-like chest pain, PND, orthopnea GI: Denies nausea, vomiting, diarrhea hematochezia or melena. He denies change in bowel habits. He also denies urologic symptoms. CANE WEIGHER: Denies any focal sensory or motor deficits other than the visual field deficit. MUSCULOSKELETAL: No complaints. PHYSICAL EXAMINATION VITAL SIGNS: Temperature 98 degrees Fahrenheit, heart rate 59 beats per minute, respiratory rate 18, blood pressure 142/71, O2 sat is 97% on room air. GENERAL PHYSICAL APPEARANCE: Mr. Cruz is an elderly male. He is tall and thin, has a pleasant disposition and is in no acute distress. HEENT: Head is atraumatic, normocephalic, conjunctive are not pale. Sclerae are anicteric. Right eye with a reactive pupil, left thigh with a reactive pupil. Oral exam no pharyngeal erythema. He has dentures in place. NECK: No palpable cervical or supraclavicular lymphadenopathy. RESPIRATORY: Good air movement bilaterally without any added breath sounds. CARDIOVASCULAR: Regular rate and rhythm, S1-S2 without any obvious murmurs, rubs or gallops. ABDOMEN: Thin belly, soft, nontender, nondistended. No palpable organ enlargement, specifically no hepatosplenomegaly. EXTREMITIES: Lower extremities have no pretibial edema or calf tenderness. CANE WEIGHER: Examination without any motor deficits in the upper and lower extremities. LABORATORY FINDINGS Blood work dated 04/30/2017: WBC count 5.9, hemoglobin 13.2 gm/dl, hematocrit 39.5%, platelet count is 201. ESR is 6. Chemistries: Sodium 140, potassium 4.3, chloride 106, bicarb 30, BUN 17, creatinine is 1, EGFR 72, glucose 88, HbA1c 5.5, calcium 8.6, total bilirubin 0.4, AST 22, ALT 24, alkaline phosphatase 88. CRP is less than 0.29, triglycerides 121, cholesterol 184, LDL is 117, HDL is 43, cholesterol HDL ratio is 4.26. Immunology: WILLIAM is pending at this time. IMAGING STUDIES CTA of the neck dated 04/30/2017: Atherosclerotic changes in the proximal left internal carotid artery but no significant stenosis. Normal right carotid artery. An MRI of the brain dated 05/01/2017: No acute findings. Remote linear infarct deep in the white matter on the left side. Minimal white matter ischemic changes. No recent infarction. Mass effect or shift. ASSESSMENT Mr. Cruz is a 71-year-old man who developed sudden onset of visual field loss in his left thigh. He tells me other than having a quadrant in the upper outer portion of his visual field on left side, he is essentially blind in that eye. The changes occurred on 04/29/2017 and he was seen by his desk sergeant who recommended evaluation in the emergency department. Multiple imaging studies of the brain were performed including MRI of the head, MRA of the head, CT angiogram, an ultrasound of the carotid arteries. CT angiogram indicated left carotid atherosclerotic changes in the proximal left internal carotid artery. There was no significant stenosis. After reviewing the neurologic service notes, as well as reviewing the notes placed by the on-call desk sergeant, it appears the working diagnosis is central retinal artery occlusion (CRAO). The patient has been initiated on antiplatelet therapy. The hematology service has been asked to see the patient to rule out a prothrombotic underlying state. Differential diagnosis also includes thromboembolism secondary to atherosclerotic plaque. RECOMMENDATIONS 1. Left central retinal vein occlusion: I have ordered a prothrombotic workup including antiphospholipid antibodies, circulating lupus anticoagulant, protein-C and protein-S levels, antithrombin three levels, factor V Leiden and homocystine levels. 2. Unintended weight loss of 10 pounds associated with occasional cough in a patient with a former history of smoking. I will request a noncontrast-enhanced CT scan of the chest. MD SAMEERA Obrien/MANOLO /7:59 AM /11:18 AM
[2017-05-02 12:00] VITALS: BP 121/58; PULSE 71; RESP 17; TEMP 98.1; O2SAT 96
--- NOTE | 2017-05-02 15:31 | RADRPT ---
EXAM DATE/TIME: 05/02/2017 14:36 [facility] COMPARISON: No previous studies available for comparison. INDICATIONS : Patient with cough and weight loss. RADIATION DOSE: 3.59 CTDIvol (mGy) MEDICAL HISTORY : Left eye vision loss. SURGICAL HISTORY : None. ENCOUNTER: Initial ACUITY: 1 day PAIN SCALE: 4/10 LOCATION: Bilateral chest TECHNIQUE: Volumetric scanning of the chest was performed. Using automated exposure control and adjustment of t he mA and/or kV according to patient size, radiation dose was kept as low as reasonably achievable to obtain optimal diagnostic quality images. DICOM format image data is available electronically for r eview and comparison. Follow-up recommendations for incidentally detected pulmonary nodules are based at a minimum on nodul e size and patient risk factors according to Fleischner Society Guidelines. FINDINGS: The lungs are clear without infiltrate, nodule, or mass. There is no pleural effusion. No appreciab le pathological adenopathy is seen within the mediastinum. CONCLUSION: Unremarkable study. Julio Ogden MD on May 02, 2017 at 15:28 Board Certified Radiologist. This report was verified electronically.
[2017-05-02 16:00] VITALS: BP 126/72; PULSE 60; RESP 17; TEMP 98.1; O2SAT 98
--- NOTE | 2017-05-02 16:12 | HHI.PR ---
Subjective Remarks Follow up vision loss. Patient states that his vision is "about the same". Denies headache, chest pain, numbness/tingling/weakness of extremities. Objective Vitals Vital Signs Date Time Temp Pulse Resp B/P Pulse Ox O2 Delivery O2 Flow Rate FiO2 05/02/17 12:00 98.1 71 17 121/58 96 05/02/17 08:00 97.6 64 17 123/68 96 05/02/17 08:00 58 05/02/17 05:00 98.0 59 18 142/71 97 05/01/17 23:59 97.7 57 18 121/57 95 05/01/17 21:23 98.1 59 16 144/73 96 I/O 05/01/17 05/01/17 05/01/17 05/02/17 05/02/17 05/02/17 06:59 14:59 22:59 06:59 14:59 22:59 Intake Total 480 ml 720 ml Balance 480 ml 720 ml Intake Oral 480 ml 720 ml # Voids 3 3 3 # Bowel Movements 0 0 Result Diagram: 04/30/17 1345 04/30/17 1345 Imaging Last Impressions Chest CT 05/02/17 0000 Signed Impressions: Service Date/Time: Tuesday, May 02, 2017 14:36 - CONCLUSION: Unremarkable study. K. Shorty Ogden MD Brain MRI 05/01/17 0000 Signed Impressions: Service Date/Time: April 11:41 - CONCLUSION: 1. No acute findings. Remote linear infarct deep white matter on the left side. Minimal white matter ischemic changes. No recent infarction, mass effect or shift. No abnormal enhancing brain lesions. Papa Schmid MD Neck CTA 04/30/17 0000 Signed Impressions: Service Date/Time: Sunday, April 30, 2017 21:18 - CONCLUSION: 1. Atherosclerotic changes of the proximal left internal carotid artery but no significant stenosis. 2. Normal right carotid artery. Mejia Cantu MD Head Magnetic Resonance Angiography 04/30/17 0000 Signed Impressions: Service Date/Time: Sunday, April 30, 2017 19:43 - CONCLUSION: 1. Questionable narrowing versus thrombus of the distal left vertebral artery versus artifact. CTA of the carotid arteries is recommended for further characterization. 2. Otherwise unremarkable MRI of the brain. Mejia Cantu MD Head CT 04/30/17 0000 Signed Impressions: Service Date/Time: Sunday, April 30, 2017 18:02 - CONCLUSION: Minimal density in the right middle cranial fossa extra-axial space likely dural thickening versus less likely hemorrhage. Otherwise unremarkable CT brain. Mejia Cantu MD Carotid Artery Ultrasound 04/30/17 0000 Signed Impressions: Service Date/Time: Sunday, April 30, 2017 18:24 - CONCLUSION: No hemodynamically significant stenosis in either carotid artery. Mejia Cantu MD Objective Remarks General: No acute distress. Heart: Regular rate and rhythm. No murmur. Lungs: Clear to auscultation bilaterally. No wheezes, rales, or rhonchi. Breathing is nonlabored. Abdomen: Soft, nontender, nondistended. Extremities: No lower extremity edema. Psych: Alert and oriented. Procedures none Urinary Catheter: No Vascular Central Line Catheter: No A/P Problem List: (1) Acute visual loss ICD Code: H53.139 Status: Acute (2) Central retinal artery occlusion of left eye ICD Code: H34.12 Status: Acute (3) Hyperlipidemia LDL goal <100 ICD Code: E78.5 Status: Acute Assessment and Plan 1. Acute vision loss, central retinal artery occlusion of the left eye: Appreciate ophthalmology, neurology recommendations. Further workup is unremarkable, including MRI/MRA, carotid artery ultrasound. Cardiology consult pending for evaluation of possible arrhythmia. 2. Hyperlipidemia: Continue statin. 3. Appreciate hematology recommendations. CT chest is negative. Hypercoagulable panel is pending. Continue aspirin. 4. DVT prophylaxis: Lovenox. Problem Qualifiers (1) Acute visual loss: Qualified Code: H53.132 - Acute visual loss, left Darnell Pereira MD May 02, 2017 16:12
--- NOTE | 2017-05-02 17:33 | MB ---
cc: SHARATH CHOW DATE OF CONSULTATION: 05/02/2017 DATE OF : 1945 REASON FOR CONSULTATION: Embolic stroke. HISTORY OF PRESENT ILLNESS 71-year-old male with past medical history significant for chronic smoker, he presented to the hospital for evaluation of sudden vision loss in the left eye. He has been diagnosed with a stroke. Multiple imaging studies were performed including, MRI, MRA, CT scan, Ultrasound the carotid arteries, echocardiogram. He has been consulted for heart Holter monitoring. REVIEW OF SYSTEMS The review of systems negative except for what is mentioned in HPI. PAST MEDICAL HISTORY None. PAST SURGICAL HISTORY Dental implants. SOCIAL HISTORY Active smoker. MEDICATIONS: None. ALLERGIES NO KNOWN DRUG ALLERGIES. FAMILY HISTORY Father at 65 of heart attack. Mother had breast cancer. SOCIAL HISTORY: He is a smoker. Has history of alcohol abuse, however stopped four years ago. Denies illicit drug use. PHYSICAL EXAMINATION VITAL SIGNS: Temperature 98, respiratory 17, Heart rate 71, blood pressure 121/ 58, O2 sat 96% on room air. Telemetry normal sinus rhythm and no tachy over arrhythmias on the monitor. IN GENERAL: Generally awake, alert, oriented x3 in no acute distress. NECK: No jugular venous distention, no carotid bruits. HEART: Regular rate and rhythm. No murmurs, rubs or gallops. LUNGS: Clear to auscultation bilaterally. No rhonchi or wheezes or rales. ABDOMEN: Soft, nontender, nondistended. Positive bowel sounds. EXTREMITIES: No clubbing, cyanosis or edema, Pulses throughout. LABORATORY Hemoglobin 13, hematocrit 39, platelet count of 201. Chemistries sodium 140, potassium 4.3, creatinine 1.0, LDL 117, triglycerides 121, cholesterol 184. ECHOCARDIOGRAM Echocardiogram normal LV systolic function with estimated ejection fraction of 30%. No wall motion abnormalities. ASSESSMENT: 71-year-old male admitted with acute vision loss, diagnosed with artery occlusion over the left eye/ cerebrovascular accident. Consulted to cardiology for further recommendations. There is no episodes of atrial fibrillation on the equipment services associate since admission however, this might still be a possibility. I do agree the patient should have a Holter monitor upon discharge. He should start with a 48-hour Holter monitor upon discharge and he should follow with cardiology on an outpatient basis, if Holter unremarkable we can assess the need for longer duration device in the near future. RECOMMENDATIONS 1. Holter monitor for 14 hours. 2. Continue antiplatelet agents and consider starting blood thinners. 3. Follow with cardiology upon discharge. Thank you for the opportunity to take part in the care of this patient. I would be available on as needed basis for any other questions or concerns. MD KAMALA Biu/coretta /4:32 PM /5:17 PM MTDD
[2017-05-02 20:00] VITALS: BP 129/62; PULSE 61; RESP 20; TEMP 97.9; O2SAT 97
[2017-05-02 20:30] VITALS: PULSE 73
[2017-05-02] MEDS: ENOXAPARIN SODIUM 40 MG/0.4 ML SYRINGE SQ SCH (22:41)
[2017-05-03] VITALS: BP 126/66; PULSE 57; RESP 20; TEMP 97.4; O2SAT 96
[2017-05-03 04:00] VITALS: BP 119/59; PULSE 54; RESP 20; TEMP 97.8; O2SAT 96
[2017-05-03 08:50] VITALS: BP 112/57; PULSE 57; RESP 20; TEMP 98.2; O2SAT 98
[2017-05-03] MEDS: SODIUM CHLORIDE 0.9% FLUSH 5 ML FLUSH IV FLUSH SCH (09:00)
[2017-05-03] MEDS: ASPIRIN 325 MG TAB PO SCH (09:20)
[2017-05-03] MEDS: ATORVASTATIN 20 MG TAB PO SCH (09:21)
--- NOTE | 2017-05-03 10:57 | HHI.DCPOC ---
Discharge Care Plan Diagnosis: (1) Acute visual loss (2) Central retinal artery occlusion of left eye (3) Hyperlipidemia LDL goal <100 Goals to Promote Your Health * To prevent worsening of your condition and complications * To maintain your health at the optimal level Directions to Meet Your Goals Take your medications as prescribed Follow your dietary instruction Follow activity as directed Keep your appointments as scheduled Take your immunizations and boosters as scheduled If your symptoms worsen call your PCP, if no PCP go to Urgent Care Center or Emergency Room Smoking is Dangerous to Your Health. Avoid second hand smoke Call the 24-hour hour crisis hotline for domestic abuse at Darnell Pereira MD May 03, 2017 10:57
[2017-05-03] MEDS ORDERED: ASPI325T PO (11:09)
[2017-05-03] MEDS ORDERED: ATOR20TA15 PO (11:09)
--- NOTE | 2017-05-03 11:32 | HHI.DS ---
cc: Mike Winters MD Discharge Summary Admission Date Apr 30, 2017 at 15:58 Discharge Date: May 03, 2017 Admitting Diagnosis acute vision loss (1) Acute visual loss ICD Code: H53.139 (2) Central retinal artery occlusion of left eye ICD Code: H34.12 (3) Hyperlipidemia LDL goal <100 ICD Code: E78.5 Procedures none Brief History - From Admission This is a 71-year-old male without significant past medical history who presents complaining of one-day history of sudden onset of loss of vision on the left thigh. The patient states that he was at home on his usual state of health when suddenly he suddenly lost the entire vision on the left eye. The patient states that he had a little bit of headache but denies any dizziness, double vision, blurred vision. He states that he called an wind instrument repairer that he had already scheduled appointment with and asked her to see him right away. As per patient report he had a dilated eye exam and he was told that he didn't have anything anatomical in the left thigh and that probably had a stroke. As per the patient's report she recommended the patient to make a follow-up upon with him and to come to the hospital should it get worst. The patient states that the complete loss of patient progress to a tunnel vision, however last night he started feeling some paresthesias over the left side of the scalp and also some weakness with some perceived left lower extremity weakness. The patient denies any numbness. The patient otherwise denies any fevers chills, cough, chest pain, diarrhea, nausea or vomiting. At the moment of interview the patient still complains of tunnel vision on the left eye, tingling over the left scalp and over the left lower extremity. CBC/BMP: 04/30/17 1345 04/30/17 1345 Significant Findings Laboratory Tests Test 04/30/17 05/01/17 13:45 06:34 Monocytes (%) (Auto) 9.6 % (0.0-8.0) Anion Gap 4 MEQ/L (5-15) Estimat Glomerular Filtration 72 ML/MIN (>89) Rate Total Protein 6.2 GM/DL (6.4-8.2) LDL Cholesterol 117 MG/DL (0-99) Imaging Last Impressions Chest CT 05/02/17 Signed Impressions: Service Date/Time: Tuesday, May 02, 2017 14:36 - CONCLUSION: Unremarkable study. Julio Ogden MD Brain MRI 05/01/17 Signed Impressions: Service Date/Time: April 11:41 - CONCLUSION: 1. No acute findings. Remote linear infarct deep white matter on the left side. Minimal white matter ischemic changes. No recent infarction, mass effect or shift. No abnormal enhancing brain lesions. Papa Schmid MD Neck CTA 04/30/17 Signed Impressions: Service Date/Time: Sunday, April 30, 2017 21:18 - CONCLUSION: 1. Atherosclerotic changes of the proximal left internal carotid artery but no significant stenosis. 2. Normal right carotid artery. Mejia Cantu MD Head Magnetic Resonance Angiography 04/30/17 Signed Impressions: Service Date/Time: Sunday, April 30, 2017 19:43 - CONCLUSION: 1. Questionable narrowing versus thrombus of the distal left vertebral artery versus artifact. CTA of the carotid arteries is recommended for further characterization. 2. Otherwise unremarkable MRI of the brain. Mejia Cantu MD Head CT 04/30/17 Signed Impressions: Service Date/Time: Sunday, April 30, 2017 18:02 - CONCLUSION: Minimal density in the right middle cranial fossa extra-axial space likely dural thickening versus less likely hemorrhage. Otherwise unremarkable CT brain. Mejia Cantu MD Carotid Artery Ultrasound 04/30/17 Signed Impressions: Service Date/Time: Sunday, April 30, 2017 18:24 - CONCLUSION: No hemodynamically significant stenosis in either carotid artery. Mejia Cantu MD PE at Discharge General: No acute distress. Heart: Regular rate and rhythm. No murmur. Lungs: Clear to auscultation bilaterally. No wheezes, rales, or rhonchi. Breathing is nonlabored. Abdomen: Soft, nontender, nondistended. Extremities: No lower extremity edema. Psych: Alert and oriented. Pt update on day of discharge The patient has no new complaints today. States that his vision is unchanged from yesterday. Denies headache, chest pain, dyspnea. Holter monitor placed at the request of cardiology. Cleared for discharge by neurology. Discussed with hematology. Continue aspirin daily. May need further anticoagulation pending the results of the prothrombotic workup. Hospital Course The patient was admitted for further workup of acute vision loss. Ophthalmology and neurology were consulted. Patient was found to have a central retinal artery occlusion. Cardiology was consulted and recommended Holter monitor. Hematology was recommended for hypercoagulable workup. The patient was continued on aspirin and started on statin. His vision remained unchanged during the hospitalization. He was cleared for discharge by neurology. He was advised follow-up as outpatient with cardiology, neurology, hematology, and ophthalmology. He was evaluated by physical therapy and occupational therapy, and did not require further rehabilitation after discharge. Pt Condition on Discharge: Stable Discharge Disposition: Discharge Home Discharge Time: > 30 minutes Discharge Instructions DIET: Follow Instructions for: Heart Healthy Diet Activities you can perform: See Additionl Instruction Activities to Avoid: Driving Follow up Referrals: Cardiology - 2-[address] Schmid Neurology - 1 Week with Dee Dee Maloney MD Oncology - 1 Week with Asher Green MD Ophthalmology - 1 Week with Verena Telles MD PCP Follow-up - [address] Winters New Medications: Aspirin (Aspirin) 325 Mg Tab 325 MG PO DAILY Blood Clot Prevention #30 Ref 0 TAB Atorvastatin (Atorvastatin) 20 Mg Tab 20 MG PO DAILY Cholesterol Management #30 Ref 0 TAB Darnell Pereira MD May 03, 2017 11:32
[2017-05-03 11:34] VITALS: PULSE 53
[2017-05-03 11:55] VITALS: BP 112/57; PULSE 57; RESP 20; TEMP 98.2; O2SAT 98
== END 2017-05-03 13:49 | disposition home or self-care (01) | DRG 123 ==
LOC: NEPC 12:19 → NEDA 15:58 → NEDH 20:17 → N05A 21:45
PROVIDERS: ADMIT Family Medicine; ATTEND Family Medicine
DX: H34.12 Central retinal artery occlusion, left eye (principal); F32.9 Major depressive disorder, single episode, unspecified; H53.132 Sudden visual loss, left eye; E78.5 Hyperlipidemia, unspecified; F41.9 Anxiety disorder, unspecified; Z87.891 Personal history of nicotine dependence; H26.9 Unspecified cataract
CPT/HCPCS: 70450; 70498; 70544; 70551; 70553; 71250; 80053; 80061; 81241; 82948; 83036; 83090; 85025; 85300; 85303; 85306; 85610; 85613; 85652; 85730; 86038; 86140; 86146; 86147; 93005; 93225; 93226; 93306; 93880; A9579; J1650; Q9967

== ENCOUNTER 2017-05-22 08:12 | Day surgery (SDC) | payer OTHER ==
[~2017-05-22 08:12] MED LIST changes: +ASPI325T PO; +ATOR20TA15 PO; -MMW SSP; -PENI500T PO
[2017-05-22] MEDS ORDERED: ATOR20TA15 PO (10:10)
[2017-05-22] MEDS ORDERED: ASPI325T PO (10:10)
[2017-05-22] MEDS ORDERED: POVIDONE IODINE 5% (ANTISEPSIS KIT) 4 APPLICATIONS EACH NARE SCH (10:15)
[2017-05-22] MEDS ORDERED: ceFAZolin 2 GM PREMIX 50 ML IV SCH (10:15)
[2017-05-22] MEDS ORDERED: MUPIROCIN 2% OINT 1 APPLIC/GM SYR NASAL SCH (10:15)
[2017-05-22] MEDS ORDERED: CHLORHEXIDINE GLUCONATE 2 % 1 PACK (2 CLOTHS) TOPICAL SCH (10:15)
[2017-05-22] MEDS ORDERED: NS 1000 ML IV SCH (10:30)
[2017-05-22] MEDS ORDERED: MIDAZOLAM HCL 2 MG/2 ML VIAL ONE (10:37)
--- NOTE | 2017-07-25 13:07 | MA ---
cc: SHARATH LAY DATE: 05/22/2017 DATE OF : 1945 PROCEDURE Loop recorder insertion. PERFORMING PHYSICIAN Dr. Lay. Dr. Chavez INDICATIONS Syncope, atrial fibrillation. POSTPROCEDURE DIAGNOSIS Successful loop recorder insertion. PROCEDURE PERFORMED 1. 15 minutes of moderate IV sedation. 2. Loop recorder insertion. DESCRIPTION OF PROCEDURE The patient was brought to the DOC unit in a postabsorptive state. After informed consents were obtained, 4 mg of IV Versed and 75 of fentanyl was given for IV sedation. He was prepped and draped in a sterile fashion. 1% lidocaine was used for local anesthesia. Next, a [employer] Reveal LINQ loop recorder was inserted subcutaneously in the left chest. The patient tolerated the procedure well without complications. Estimated blood loss less than 5 cc. After the procedure the incision was closed with a Steri-Strip. Sharath Lay MD WEB SERVICES MANAGER/BT /12:13 PM /12:49 PM RICHARD
== END 2017-05-22 15:00 | disposition home or self-care (01) ==
LOC: HDOC 08:12 → HDIC 08:15 → HDOC 15:00
PROVIDERS: ATTEND Radiology Vascular & Interventional Radiology
DX: I48.91 Unspecified atrial fibrillation (principal); R55 Syncope and collapse; I63.9 Cerebral infarction, unspecified
CPT/HCPCS: 33282; C1764; J0690; J2250; J3010; J7030